=== PATIENT | female | born 1995 | race Asian ===

== ENCOUNTER 2022-08-26 06:25 | Inpatient (IN) | payer OTHER ==
[2022-08-26] MEDS ORDERED: ELECTROLYTE-148 SOLN 1,000 ML IV SCH (07:00)
[2022-08-26] MEDS ORDERED: CITRIC ACID/SODIUM CITRATE 30 ML UNIT-DOSE CUP PO ONE (07:00)
[2022-08-26 07:42] VITALS: BMI 32.1
[2022-08-26] MEDS ORDERED: morphine SULFATE (PF) 1 MG/2 ML SYRINGE ONE (08:02)
[2022-08-26] MEDS ORDERED: FENTANYL CITRATE/PF 50 MCG/ML VIAL ONE (08:02)
[2022-08-26] MEDS ORDERED: ONDANSETRON 4 MG/2 ML VIAL ONE (08:04)
[2022-08-26] MEDS ORDERED: ceFAZolin SODIUM 1 GM VIAL ONE (08:04)
[2022-08-26] MEDS ORDERED: DEXAMETHASONE SOD PHOSPHATE 4 MG/1 ML VIAL ONE (08:04)
[2022-08-26] MEDS ORDERED: PROPOFOL 20 ML ONE (08:05)
[2022-08-26] MEDS ORDERED: PHENYLEPHRINE HCL 10 MG/1 ML SINGLE DOSE VIAL ONE (08:05)
[2022-08-26] MEDS ORDERED: SODIUM CHLORIDE 0.9% P/F 10 ML VIAL IJ ONE (08:06)
[2022-08-26] MEDS ORDERED: ePHEDrine SULFATE 50 MG/1 ML AMPULE ONE (08:06)
[2022-08-26] MEDS ORDERED: OXYTOCIN 10 UNITS/ML VIAL ONE (08:45)
[2022-08-26] MEDS: OXYTOCIN 20 UNITS in 0.9% NS 20 UNIT/1,000 ML INFUS.BAG IV SCH ×3 (09:10→15:40)
[2022-08-26] MEDS ORDERED: METHYLERGONOVINE MALEATE 0.2 MG/1 ML AMP IM PRN (09:18)
[2022-08-26] MEDS ORDERED: ACETAMINOPHEN 325 MG TABLET (FP) PO PRN (09:18)
[2022-08-26] MEDS ORDERED: SENNOSIDES/DOCUSATE COMBO (SENNA PLUS) TABLET (UD) PO PRN (09:18)
[2022-08-26] MEDS ORDERED: IBUPROFEN 800 MG/8 ML IJ IVPB PRN (09:18)
[2022-08-26 09:42] LABS: CORD BASE EXCESS -2.7 mmol/L (0-2); CORD HCO3 22.7 mmHg (20-29); CORD PCO2 41.6 mmHg (30-78); CORD pH 7.355 (7.14-7.44)
[2022-08-26 09:45] LABS: CORD BASE EXCESS -2.4 mmol/L (0-2); CORD HCO3 25.2 mmHg (20-29); CORD PCO2 55.2 mmHg (30-78); CORD pH 7.278 (7.14-7.44)
[2022-08-27] MEDS: IBUPROFEN 600 MG TABLET (FP) PO PRN ×2 (07:20→18:09)
[2022-08-27] MEDS: SIMETHICONE 80 MG TAB.CHEW (FP) PO PRN ×2 (07:20→18:09)
[2022-08-27] MEDS ORDERED: oxyCODONE HCL 5 MG TABLET PO PRN ×2 (09:00)
[2022-08-27] MEDS ORDERED: BISACODYL 10 MG SUPP.RECT RC PRN (09:18)
[2022-08-27 09:20] LABS: BASO % 0.4 % (0-2.0); EOS % 0.6 % (0-4.5); HEMATOCRIT 35.5 % (32.4-45.2); HEMOGLOBIN 12.1 GM/dL (10.7-15.3); LYMPH % 18.1 % (8-40); MCH 30.1 pg (25.7-33.7); MCHC 34.1 g/dl (32.0-36.0); MEAN CELL VOLUME 88.3 fl (80-96); MEAN PLT VOLUME 8.9 fl (7.5-11.1); NEUT % 74.9 % (42.8-82.8); PLATELET COUNT 238 10^3/uL (134-434); RBC 4.03 M/mm3 (3.60-5.2); RDW 13.3 % (11.6-15.6); WHITE BLOOD COUNT 12.3 K/mm3 (4.0-10.0)
[2022-08-27] MEDS: FERROUS SO4 325 MG TABLET (FP) PO SCH ×2 (10:05→21:04)
[2022-08-27] MEDS: PRENATAL VITAMINS W/ FOLIC ACID TABLET (FP) PO SCH (10:05)
[2022-08-28] MEDS: PRENATAL VITAMINS W/ FOLIC ACID TABLET (FP) PO SCH (09:13)
[2022-08-28] MEDS: FERROUS SO4 325 MG TABLET (FP) PO SCH (09:13)
[2022-08-28] MEDS: IBUPROFEN 600 MG TABLET (FP) PO PRN (09:13)
[2022-08-28 09:48] VITALS: BP 123/72; PULSE 87; RESP 18; TEMP 98
== END 2022-08-28 12:00 | disposition home or self-care (01) | DRG 540 ==
LOC: JLDR 06:25 → J3W 10:50
PROVIDERS: ADMIT Obstetrics & Gynecology; ATTEND Obstetrics & Gynecology
PROC: 10D00Z1 Extraction of Products of Conception, Low, Open Approach (ICD-10-PCS; principal; 2022-08-26)
DX: O34.211 Maternal care for low transverse scar from previous cesarean delivery (principal); N85.8 Other specified noninflammatory disorders of uterus; Z3A.39 39 weeks gestation of pregnancy; Z37.0 Single live birth
CPT/HCPCS: 36415; 36600; 82803; 85025; 86850; 86900; 86901; 88307-TC; C9803-CS; U0003; U0005